=== PATIENT | female | born 1945 | race Caucasian/White ===

== ENCOUNTER → 2016-09-24 | Outpatient (CLI) | payer MEDICARE | END | disposition home or self-care (01) | LOC: GMAH 10:47 | PROVIDERS: ATTEND Family Medicine | DX: E89.0 Postprocedural hypothyroidism (principal) ==

== ENCOUNTER 2019-03-04 15:12 | Emergency (ER) | payer MEDICARE, OTHER ==
[2019-03-04 15:29] VITALS: TEMP 97.9
[2019-03-04] MEDS ORDERED: SODIUM CHLORIDE 0.9% (FLUSH) 10 ML SYG IV PRN (15:34)
[2019-03-04] MEDS ORDERED: ASPIRIN TABLET 325 MG TAB PO ONE (15:34)
--- NOTE | 2019-03-04 16:08 | ED.PDOC ---
History of Present Illness - General Chief Complaint: Neuro Symptoms/Deficits Stated Complaint: left arm weakness,dizziness Time Seen by Provider: 03/04/19 15:25 Source: patient Exam Limitations: no limitations - History of Present Illness Initial Comments: The patient presents to the ED complaining of transient episode of left upper extremity numbness. PMH is significant for hyperlipidemia, hypertension, current smoker. The patient states that she was trying to use her cellphone when her left arm suddenly felt weak and she had difficulty typing in a number. She was eventually able to phone her neighbor but noted that she had slurred speech. She denies lower extremity weakness/numbness but she does report gait abnormality. Symptoms lasted around 5-10 minutes and then resolved spontaneously. She had a subsequent similar episode that also resolved. She does not have any complaints currently. She reports having an MRI several months ago that showed areas of microvascular disease. She does not have a neurologist. No other complaints at this time. Timing/Duration: episodic - < 10 minutes Severity: moderate Improving Factors: nothing Worsening Factors: nothing Associated Symptoms: trouble walking, weakness Allergies/Adverse Reactions: Allergies NO KNOWN ALLERGY Allergy (Verified 09/25/15 11:31) Home Medications: Ambulatory Orders Simvastatin [Zocor] 20 mg PO BEDTIME 09/25/15 Clonazepam 2 mg PO DAILY 03/04/19 Folic Acid 800 mcg PO DAILY 03/04/19 Levothyroxine Sodium 75 mcg PO DAILY 03/04/19 Pantoprazole Sodium 40 mg PO DAILY 03/04/19 Verapamil HCl ER [Isoptin SR] 180 mg PO BID 03/04/19 Review of Systems - Review of Systems Constitutional: Denies: chills, fever EENTM: States: no symptoms reported Respiratory: Denies: cough, short of breath Cardiology: Denies: edema, palpitations Gastrointestinal/Abdominal: Denies: abdominal pain, nausea, vomiting Genitourinary: States: no symptoms reported Musculoskeletal: States: no symptoms reported Skin: States: no symptoms reported Neurological: States: weakness, other - slurred speech, difficulty walking Endocrine: States: no symptoms reported All other Systems: Reviewed and Negative Past Medical History (General) - Patient Medical History Hx Stroke: No Hx Cardiac Disorders: No Hx Congestive Heart Failure: No Hx Hypertension: Yes Hx Thyroid Disease: Yes Hx Diabetes: No Hx MRSA: No Surgical History: cholecystectomy - Vaccination History Hx Influenza Vaccination: Yes Hx Pneumococcal Vaccination: Yes - Social History Hx Tobacco Use: Yes Family Medical History - Family History Mother Living Status: Age at (years of age): 69 Cause of : alzheimers Father Living Status: Age at (years of age): 78 Cause of : prostate CA Physical Exam - Physical Exam General Appearance: Alert, Comfortable, No apparent distress, Well Developed, Well Nourished ENT Exam: normal ENT inspection Neck: non-tender, full range of motion, other - no bruit Respiratory: lungs clear, normal breath sounds, no respiratory distress, no accessory muscle use Cardiovascular/Chest: normal peripheral pulses, regular rate, rhythm, no edema, no JVD, no murmur Gastrointestinal/Abdominal: non tender, soft Extremities Exam: non-tender, normal range of motion, no edema Mental Status: alert, oriented x 3 center manager Exam: normal hearing, normal speech, PERRL, other - CN II-XII intact, normal strength/sensation bilaterally, normal rapid alternating movements. No lateralizing deficits. Coordination/Gait: normal finger to nose, normal gait Motor/Sensory: no motor deficit, no sensory deficit Skin Exam: normal color Progress - Progress Progress: 03/04/19 16:29 Patient reassessed, remains neurologically intact. Discussed imaging results and findings. She is at intermediate risk of major stroke per ABCD2 score. Discussed this finding including estimated risk of major stroke 4% in two days, 6% in one week, 10% in 90 days. As she is not lowest risk category I have recommended transfer to outside hospital for further workup and treatment. After discussion of risk and benefit she has declined transfer at this time because she is caring for a neighbor's dog. She will follow up with her primary care doctor in two days for outpatient workup. Home care instructions and return indications reviewed. She is already on cholesterol medications, will add daily aspirin. She is to return to the ED if she would like to proceed with admit and workup or if she has recurrent or worsening symptoms. MDM: Patient presents to ED complaining of two transient episodes of slurred speech, left upper extremity weakness and gait abnormality. Episodes last < 10 minutes a nd have resolved prior to arrival. No lateralizing deficits detected on today's evaluation. She does have evidence for microvascular ischemia. Workup as below. She has ABCD2 score of 4 placing her at moderate risk for recurrent stroke. This was explained to the patient including her risk for recurrent stroke and I recommended admission/transfer for TIA evaluation including MRI/MRA, Echo, lipid panel, etc. After discussion of risk and benefit the patient elected not to be admitted to the hospital and will instead follow up with her primary care provider in two days for outpatient workup. Home care instructions and return indications reviewed. - Results/Orders Results/Orders: 03/04/19 15:34 Sodium Chloride 0.9% (Flush) [Saline Flush Syringe] 10 ml IV PRN PRN 03/04/19 15:35 Telemetry .ONCE 03/04/19 15:45 EKG STAT Laboratory Results - last 24 hr 03/04/19 03/04/19 03/04/19 15:55 15:55 15:55 WBC 6.7 RBC 4.72 Hgb 14.0 Hct 41.9 MCV 88.8 MCH 29.6 MCHC 33.4 RDW 14.2 Plt Count 213 MPV 8.8 Absolute Neuts (auto) 4.20 Absolute Lymphs (auto) 1.80 Absolute Monos (auto) 0.50 Absolute Eos (auto) 0.10 Absolute Basos (auto) 0.10 Neutrophils % 62.6 Lymphocytes % 27.2 Monocytes % 7.6 Eosinophils % 1.4 Basophils % 1.2 PT 9.7 INR 0.97 PTT (SP) 25.9 Sodium 137 Potassium 3.7 Chloride 102 Carbon Dioxide 23 Anion Gap 15.7 BUN 17 Creatinine 0.68 BUN/Creatinine Ratio 25.0 H Random Glucose 88 Serum Osmolality 274.8 L Calcium 9.3 Total Bilirubin 0.3 AST 17 ALT 14 Alkaline Phosphatase 67 Creatine Kinase 58 CK-MB (CK-2) 1.2 CK-MB (CK-2) % Not Reportable Troponin I < 0.02 Serum Total Protein 6.4 Albumin 4.0 Globulin 2.4 Albumin/Globulin Ratio 1.7 - EKG/XRAY/CT Comments: 1620 normal sinus rhythm rate 79, normal axis, normal intervals, no STEMI CT: No acute intracranial findings. Mild cerebral atrophy and nonspecific chron Departure - Departure Clinical Impression: Transient ischemic attack (TIA) Time of Disposition: 16:32 Disposition: Discharge to Home or Self Care Condition: Fair Departure Forms: ED Discharge - Pt. Copy, Patient Portal Self Enrollment Instructions: Transient Ischemic Attack (DC) Diet: resume usual diet Activity: increase activity as tolerated Home Medications: Ambulatory Orders Simvastatin [Zocor] 20 mg PO BEDTIME 09/25/15 Clonazepam 2 mg PO DAILY 03/04/19 Folic Acid 800 mcg PO DAILY 03/04/19 Levothyroxine Sodium 75 mcg PO DAILY 03/04/19 Pantoprazole Sodium 40 mg PO DAILY 03/04/19 Verapamil HCl ER [Isoptin SR] 180 mg PO BID 03/04/19 Comments: Follow up with your primary care provider as soon as possible for additional testing. Return to the Emergency Department as needed for any new, worsening, or recurrent symptoms.
--- NOTE | 2019-03-04 16:14 | CT ---
EXAM: CT Head Without Intravenous Contrast CLINICAL HISTORY: The patient is 73 years old and is Female; left side weakness TECHNIQUE: Axial computed tomography images of the head/brain without intravenous contrast. Sagittal and coronal reformatted images were created and reviewed. This CT exam was performed using one or more of the following dose reduction techniques: automated exposure control, adjustment of the mA and/or kV according to patient size, and/or use of iterative reconstruction technique. COMPARISON: No relevant prior studies available. FINDINGS: Brain: Periventricular and deep white matter hypodensities, most commonly due to nonspecific white matter chronic microvascular ischemia. Mild cerebral atrophy. No hemorrhage. Ventricles: Unremarkable. No ventriculomegaly. Bones/joints: Unremarkable. No acute fracture. Soft tissues: Unremarkable. Vasculature: Vascular calcifications. Sinuses: Unremarkable as visualized. No acute sinusitis. Mastoid air cells: Unremarkable as visualized. No mastoid effusion. IMPRESSION: No acute intracranial findings. Mild cerebral atrophy and nonspecific chronic microvascular ischemic changes. Electronically signed by: Low Layton MD 03/04/2019 4:12 PM CDT
[2019-03-04 16:34] VITALS: BP 156/75; O2SAT 99
== END 2019-03-04 16:39 | disposition home or self-care (01) ==
LOC: ER 15:12
DX: G45.9 Transient cerebral ischemic attack, unspecified (principal); I10 Essential (primary) hypertension; E07.9 Disorder of thyroid, unspecified; F17.200 Nicotine dependence, unspecified, uncomplicated; E78.5 Hyperlipidemia, unspecified; Z79.899 Other long term (current) drug therapy

== ENCOUNTER → 2019-12-19 | Outpatient (CLI) | payer OTHER ==
--- NOTE | 2019-12-20 10:25 | MRI ---
EXAM DESCRIPTION: Brain w/o Contrast: MRI. CLINICAL HISTORY: HEADACHE COMPARISON: CT scan of the head without contrast February 2019. TECHNIQUE: Multiplanar, high-field MRI unit, multiple diffusion sequences, multiple conventional sequences without contrast. FINDINGS: Bilateral hyperintense regions of confluent and multifocal FLAIR and T2-weighted signal in the periventricular white matter and draper/sub-cortical white matter junctions of the cerebral hemispheres. . Focal lesions or more subcortical. No hemorrhage, no cerebral edema, no midline shift.. Bilateral focal hyperintense white matter signal in the basal ganglia. No hemorrhage, no cerebral edema, no mass-effect similar hyperintense FLAIR signal in the leydi of the brainstem. No hemorrhage, no cerebral edema, no mass-effect. Normal signal in the cerebellar hemispheres. Subarachnoid nodular granulations bilaterally, not abnormal. Concordance of the diffusion and non-diffusion sequences with no diffusion restriction. Cortical sulci, ventricles, and other CSF spaces, and the subdural spaces are normally configured for patients age.. No effacement or displacement. No midline shift. No extra-axial hemorrhage. Normal flow signal void in the major vessels of the [place], and the venous sinuses. IACs are symmetric bilaterally. Normal signal in the bilateral mastoid air cells. No mass effect in the bilateral cerebellopontine angles. Pituitary gland occupies most of the sella. Base of the cerebellar tonsils is above the level of the foramen magnum. Normal signal in the paranasal sinuses.. The bony calvarium is intact. IMPRESSION: 1. Bilateral age-related changes and cerebral microvascular disease in the white matter of the cerebral hemispheres, relatively symmetric. No hemorrhage, no cerebral edema, no midline shift, and no mass effect. Similar appearing bilateral focal lesions in the basal ganglia. And bilateral lesions in the leydi of the brainstem. No hemorrhage mass effect. 2. Normal noncontrast MRI diffusion scan with no evidence of significant ischemia or subacute or acute infarction. Electronically signed by: Israel Aguiar MD 12/20/2019 10:23 AM CDT
== END ==
LOC: MRI 10:52
PROVIDERS: ATTEND Family Medicine
DX: I67.9 Cerebrovascular disease, unspecified (principal); G31.1 Senile degeneration of brain, not elsewhere classified; G93.9 Disorder of brain, unspecified; R51 Headache

== ENCOUNTER → 2020-01-01 | Outpatient (CLI) | payer OTHER ==
--- NOTE | 2020-01-02 16:49 | MRI ---
EXAM DESCRIPTION: Lumbar Spine w/o Contrast : Magnetic Resonance Imaging. CLINICAL HISTORY: OTHER SPONDYLOSIS WITH MYELOPATHY, LUMBAR REGION COMPARISON: No prior lumbosacral imaging available. TECHNIQUE: Multiplanar, multiple standard sequences, non contrast MRI, lumbar spine. FINDINGS: L5-S1: The disc is well visualized on axial T2 series 501, image 3. L5-S1 disc space mild to moderate decrease. Posterior broad-based bulge. Moderate endplate reactive changes diffusely but right side disc osteophyte complex encroaching on the right foramen and abutting the exiting right L5 nerve. Hypertrophic changes in the posterior facet joints and flavum ligaments (open canal elements (closed. AP canal diameter 12 mm. Left foraminal mild narrowing. L4-L5: Disc desiccation and moderate disc space loss with advanced endplate reactive changes in the midline into the left of midline. Disc spur complex encroaching on the left foramen abutting the left L4 nerve. Posterior disc spur complex abutting the thecal sac. Mild narrowing right foramen. Minimal hypertrophic changes in the canal elements AP canal diameter 12 mm. L3-L4: Disc desiccation and minimal disc space loss. Trace retrolisthesis. Anterior mild endplate reactive changes. Posterior broad-based disc bulge. Hypertrophic changes of the canal elements more right than left. Mild to moderate narrowing of the right foramen and mild narrowing of the left foramen. L2-L3: Minimal disc desiccation with disc space maintained. Hypertrophic changes of the canal elements. Right foramen is patent with mild narrowing of the left foramen. L1-L2: Anterior endplate reactive changes in the midline with concavities in the inferior L1 endplate. Canal elements unremarkable. Canal is patent. Bilateral foramina are patent. Conus terminates just below the disc space. T12-L1: Disc desiccation with concavities in the endplates but no posterior bulging. Hypertrophic changes in the left side canal elements. Canal is patent. Bilateral foramina are patent. Superior T12 endplate changes abutting the T11- 12 disc space but no canal or foraminal stenosis. Larger Schmorl's node midline superior T12.. No scoliosis. Paravertebral soft tissues paraspinal muscle atrophy. Probable cyst anterior aspect inferior pole right kidney.. Distal cord normal signal and caliber. Otherwise normal marrow signal in the remaining vertebral bodies and the posterior elements. Vertebral bodies are not compressed at any level. IMPRESSION: 1. Multilevel disc desiccation, endplate spondylosis, hypertrophic degenerative changes in the facet joints and posterior flavum ligaments, and disc space loss. 2. Right side endplate and disc spur complex at L5-S1 encroaching on the right foramen and abutting the right L5 nerve. 3. Left side disc spur complex with advanced spondylosis encroaching on the foramen and abutting the left L4 nerve. More recent spondylosis changes to the right of midline with marrow edema and mild narrowing of the foramen. 4. Chronic spondylosis with no marrow edema, superior T12 endplate with large inactive Schmorl's node but no definite compression. . Electronically signed by: Israel Aguiar MD 01/02/2020 4:47 PM CDT
== END ==
LOC: MRI 13:36
PROVIDERS: ATTEND Family Medicine
DX: M47.16 Other spondylosis with myelopathy, lumbar region (principal); M51.36 Other intervertebral disc degeneration, lumbar region; M46.96 Unspecified inflammatory spondylopathy, lumbar region; M24.28 Disorder of ligament, vertebrae; M25.78 Osteophyte, vertebrae; M51.44 Schmorl's nodes, thoracic region

== ENCOUNTER → 2020-04-09 | Outpatient (CLI) | payer OTHER | LOC: GMAJ 10:32 | PROVIDERS: ATTEND Family Medicine | DX: E03.9 Hypothyroidism, unspecified (principal); E78.2 Mixed hyperlipidemia; I10 Essential (primary) hypertension ==

== ENCOUNTER 2020-06-03 16:54 | Emergency (ER) | payer OTHER ==
--- NOTE | 2020-06-03 17:55 | ED.PDOC ---
History of Present Illness - General Chief Complaint: Laceration Stated Complaint: right knee laceration - fall Time Seen by Provider: 06/03/20 17:31 - History of Present Illness Initial Comments: TRIPPED AND FELL ON RIGHT KNEE ON WOOD DECK, SUFFERED LACERATION OVER KNEE CAP., DENIES KNOWN FB, ABLE TO AMBULATE WITHOUT DIFFICULTY. Improving Factors: nothing Worsening Factors: nothing Allergies/Adverse Reactions: Allergies NO KNOWN ALLERGY Allergy (Verified 06/03/20 17:14) Home Medications: Ambulatory Orders Simvastatin [Zocor] 20 mg PO BEDTIME 09/25/15 Clonazepam 2 mg PO DAILY 03/04/19 Folic Acid 800 mcg PO DAILY 03/04/19 Levothyroxine Sodium 75 mcg PO DAILY 03/04/19 Pantoprazole Sodium 40 mg PO DAILY 03/04/19 Verapamil HCl ER [Isoptin SR] 180 mg PO BID 03/04/19 Review of Systems - Review of Systems Constitutional: States: no symptoms reported EENTM: States: no symptoms reported Respiratory: States: no symptoms reported Cardiology: States: no symptoms reported Gastrointestinal/Abdominal: States: no symptoms reported Genitourinary: States: no symptoms reported Past Medical History (General) - Patient Medical History Hx Stroke: No Hx Cardiac Disorders: No Hx Congestive Heart Failure: No Hx Hypertension: Yes Hx Thyroid Disease: Yes Hx Diabetes: No Hx MRSA: No Surgical History: Hysterectomy - Vaccination History Hx Influenza Vaccination: Yes Hx Pneumococcal Vaccination: Yes - Social History Hx Tobacco Use: Yes - Activities of Daily Living Hospice Agency (if applicable):: None - Female History Patient is a Female of Child Bearing Age (10 -59 yrs old): No Family Medical History - Family History Mother Living Status: Age at (years of age): 69 Cause of : alzheimers Father Living Status: Age at (years of age): 78 Cause of : prostate CA Physical Exam - Physical Exam General Appearance: Alert, Well Developed, Well Groomed, Well Hydrated, Well Nourished Neck: non-tender, full range of motion, supple, normal inspection Gastrointestinal/Abdominal: non-tender, no organomegaly Back: normal inspection, no CVA tenderness, no vertebral tenderness Leg: normal inspection, non-tender, no evidence of injury Knee: normal ROM, other - 6 CM LACERATION OVER THE RIGHT PATELLA Mental Status: alert, oriented x 3 Skin: normal color, warm/dry Procedures - Laceration/Wound Repair Knee Wound Length (cm): 6 Wound's Depth, Shape: flap, contused tissue Wound Explored: EXTENSION INTO BURSA Irrigated w/ Saline (cc's): 200 Anesthesia: Lidocaine w/ Epi Volume Anesthetic (cc's): 20 Wound Debrided: WOUND EDGES REVISED Suture Size/Type: prolene - 3.O PROLENE SUPERFICIAL X 12, vicryl rapide - 4.O VICRAL SIMPLE INTERUPTED DEEP TO CLOSE BURSA, X 4 Number of Sutures: 12 Deep Layer Suture Size/Type: 4:0 Sterile Dressing Applied?: Yes Departure - Departure Clinical Impression: Laceration of knee Time of Disposition: 18:32 Disposition: Discharge to Home or Self Care Condition: Good Departure Forms: ED Discharge - Pt. Copy, Patient Portal Self Enrollment Instructions: DI for Laceration Repair, Laceration Repair Referrals: Walter Lopez MD [Primary Care Provider] - 1-2 Weeks Home Medications: Ambulatory Orders Simvastatin [Zocor] 20 mg PO BEDTIME 09/25/15 Clonazepam 2 mg PO DAILY 03/04/19 Folic Acid 800 mcg PO DAILY 03/04/19 Levothyroxine Sodium 75 mcg PO DAILY 03/04/19 Pantoprazole Sodium 40 mg PO DAILY 03/04/19 Verapamil HCl ER [Isoptin SR] 180 mg PO BID 03/04/19 Additional Instructions: SUTURES OUT IN 14 DAYS. STRONGLY RECOMMEND FOLLOW UP IN 2-3 DAYS, EITHER WITH PCP OR ORTHOPEDICS.
[2020-06-03] MEDS ORDERED: CHLORHEXIDINE GLUCONATE 4 % 15 ML UD TOP ONE (17:59)
[2020-06-03] MEDS: LIDOCAINE 1% W/ EPINEPHRINE 20 ML VIAL INJ STA (18:04)
[2020-06-03] MEDS ORDERED: TETANUS,DIPHTHERIA,PERTUSSIS 1 EA SYG IM ONE (18:54)
[2020-06-03] MEDS: TETANUS,DIPHTHERIA,PERTUSSIS 1 EA SYG IM ONE (18:58)
--- NOTE | 2020-06-03 19:00 | RAD ---
EXAM DESCRIPTION: Knee, right 1 or 2 Views CLINICAL HISTORY: 74 years Female TRAUMA, LAC, R/O FB COMPARISON: None. TECHNIQUE: Two views of the right knee. FINDINGS: There is gas in the soft tissues anterior to the knee consistent with lacerations. No definite radiopaque foreign body is identified. No acute fractures or dislocations are identified. No osseous destructive lesions. Mild degenerative changes. Atherosclerotic calcifications. IMPRESSION: Lacerations. No definite radiopaque foreign body. Electronically signed by: Fernando Tatum MD 06/03/2020 6:58 PM [employer]AD [employer] DEVELOPER
[2020-06-03 19:05] VITALS: BP 141/74; TEMP 97.9; O2SAT 95
== END 2020-06-03 19:02 | disposition home or self-care (01) ==
LOC: ER 16:54
DX: S81.011A Laceration without foreign body, right knee, initial encounter (principal); W01.0XXA Fall on same level from slipping, tripping and stumbling without subsequent striking against object, initial encounter; I10 Essential (primary) hypertension; E07.9 Disorder of thyroid, unspecified; Z87.891 Personal history of nicotine dependence; Z79.899 Other long term (current) drug therapy; Y92.9 Unspecified place or not applicable